=== PATIENT | male | born 1960 | race Caucasian/White ===

== ENCOUNTER 2022-12-26 10:08 | Emergency (ER) | payer OTHER ==
[~2022-12-26] VITALS: Ht 167.6 cm; Wt 70.0 kg
[2022-12-26 10:35] VITALS: BP 177/100; PULSE 78; RESP 18; O2SAT 97
[2022-12-26] MEDS ORDERED: TETANUS, DIPHTHERIA, PERTUSSIS VAC/PF 0.5ML (>10YR OLD) IM ONE (10:45)
[2022-12-26] MEDS ORDERED: LIDOCAINE HCL/PF 1% 10 MG/ML 5ML VIAL INFIL ONE (10:45)
[2022-12-26] MEDS ORDERED: BACITRACIN ZINC OINT UDPKT TOP ONE (10:45)
[2022-12-26] MEDS ORDERED: TOPUD MT (13:50)
== END 2022-12-26 14:27 | disposition home or self-care (01) ==
LOC: ER 12:00
DX: S01.511A Laceration without foreign body of lip, initial encounter (principal); I10 Essential (primary) hypertension; W18.39XA Other fall on same level, initial encounter; Y93.89 Activity, other specified; Y92.89 Other specified places as the place of occurrence of the external cause; Y99.8 Other external cause status
CPT/HCPCS: 12015; 70486; 90471; 90715; 99285; J3490